=== PATIENT | male | born 1930 | race Caucasian/White ===

== ENCOUNTER 2016-10-02 08:49 | Observation (INO) | payer OTHER, BC ==
[~2016-10-02] VITALS: Ht 180.3 cm; Wt 77.0 kg
[~2016-10-02 08:49] MED LIST: NORVASC5 MG PO; PRAVACHOL40 MG PO; PROTONIX40 MG PO; VASOTEC2.5 MG PO; VESICARE10 MG PO
[2016-10-02 09:11] LABS: POINT-OF-CARE METER ID UU13113778
[2016-10-02 10:05] LABS: BASOPHIL COUNT 0.1 K/uL (0-0.1); CARBON DIOXIDE (BICARBONATE) 32.6 MEQ/L (20-31); EOSINOPHIL (%) 3.4 % (0-5); EOSINOPHIL COUNT 0.3 K/uL (0-0.3); HEMATOCRIT 42.9 % (38.0-50.0); IMMATURE GRANULOCYTE (%) 0.6 % (0.0-0.7); IMMATURE GRANULOCYTE COUNT 0.1 K/uL; INSTRUMENT ABS NEUTROPHIL CT 5.6 K/uL; LYMPHOCYTE COUNT 1.6 K/uL (1.0-2.8); MCHC 33.6 G/DL (30.0-36.0); MCV 95.3 FL (86-99); MEAN PLAT.VOLUME 11.2 uM^3 (9.0-12.4); MONOCYTE (%) 9.6 % (3-12); MONOCYTE COUNT 0.8 K/uL (0-0.8); NEUTROPHIL (%) 67.1 % (45-76); NEUTROPHIL COUNT 5.6 K/uL (1.8-6.4); PLATELET COUNT 219 K/uL (156-360); RBC DIS.WIDTH-CV 13.2 % (11.8-14.6); RBC DIS.WIDTH-SD 46.6 % (39-53); WHITE BLOOD COUNT 8.3 K/uL (4.1-10.2)
[2016-10-02 10:13] LABS: CHLORIDE 103 mEq/L (99-109); POTASSIUM 4.5 mEq/L (3.7-5.4); SODIUM 139 mEq/L (136-147)
[2016-10-02 10:15] LABS: GLUCOSE 82 mg/dL (70-99)
[2016-10-02 10:16] LABS: ANION GAP 8 MEQ/L (2-14)
[2016-10-02 10:18] LABS: GFR ESTIMATE (CALCULATED) 44 mL/min/
[2016-10-02 10:19] LABS: UREA NITROGEN (BUN) 25 mg/dL (9-23)
[2016-10-02 10:59] LABS: ADD MIUA? NO; BILIRUBIN NEGATIVE; BLOOD NEGATIVE; COLOR STRAW ((YELLOW)); GLUCOSE (STRIP) NEGATIVE; KETONES NEGATIVE; LEUKOCYTES NEGATIVE; NITRITE NEGATIVE; PROTEIN (STRIP) NEGATIVE; SPECIFIC GRAVITY 1.005 (1.000-1.030); UCUL ADDED? NO; UROBILINOGEN 0.2 MG/DL (0.2-1.0)
[2016-10-02 12:51] LABS: POINT-OF-CARE METER ID UU13113702
[2016-10-02] MEDS ORDERED: GLIPIZIDE5 MG PO (14:39)
[2016-10-02] MEDS ORDERED: DAILY VITE1 EAC1 PO (14:40)
[2016-10-02] MEDS ORDERED: ASPIRIN81 M2 PO (14:40)
[2016-10-02 14:57] LABS: POINT-OF-CARE METER ID UU14100415
[2016-10-02 18:16] VITALS: BP 187/81
[2016-10-02 18:44] LABS: POINT-OF-CARE METER ID UU14162513
[2016-10-02 22:48] LABS: POINT-OF-CARE METER ID UU13113831
[2016-10-02 23:17] VITALS: BP 154/64
[2016-10-03 04:15] VITALS: BP 127/64
[2016-10-03 04:24] LABS: POINT-OF-CARE METER ID UU13113700
[2016-10-03 06:55] LABS: Estimated Average Glucose 146 mg/dL (70-123); HEMOGLOBIN A1c (GLYCOHEMOGLOB) 6.7 % HGB (Below 5.7)
[2016-10-03 07:08] VITALS: BP 164/71
[2016-10-03 10:20] LABS: POINT-OF-CARE METER ID UU13113831
[2016-10-03 11:50] VITALS: BP 145/86
[2016-10-03] MEDS ORDERED: DONEPEZIL HCL5 MG PO (13:01)
== END 2016-10-03 13:15 | disposition home or self-care (01) ==
LOC: EME 08:49 → EDOF 14:43 → 5WEST 14:43 → EDOF 15:20 → 5WEST 18:13
PROVIDERS: Emergency Medicine; Hospitalist
DX: T38.3X1A Poisoning by insulin and oral hypoglycemic [antidiabetic] drugs, accidental (unintentional), initial encounter (principal); R41.89 Other symptoms and signs involving cognitive functions and awareness; F03.90 Unspecified dementia, unspecified severity, without behavioral disturbance, psychotic disturbance, mood disturbance, and anxiety; E11.649 Type 2 diabetes mellitus with hypoglycemia without coma; Z79.84 Long term (current) use of oral hypoglycemic drugs; I12.9 Hypertensive chronic kidney disease with stage 1 through stage 4 chronic kidney disease, or unspecified chronic kidney disease; N18.3 Chronic kidney disease, stage 3 (moderate); K21.9 Gastro-esophageal reflux disease without esophagitis; E78.5 Hyperlipidemia, unspecified; F17.210 Nicotine dependence, cigarettes, uncomplicated; Z85.46 Personal history of malignant neoplasm of prostate; Z83.3 Family history of diabetes mellitus
CPT/HCPCS: 80048; 81003; 82803; 82948; 83036; 85025; 99281; 99285; G0378; J7030; S0028